=== PATIENT | female | born 1990 | race Caucasian/White ===

== ENCOUNTER 2020-10-10 11:57 | Emergency (ER) | payer OTHER, SELFPAY ==
[2020-10-10 11:59] VITALS: BP 134/86; PULSE 86; RESP 16; TEMP 36.3; O2SAT 99; BMI 17.2
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
== END 2020-10-10 13:32 | disposition home or self-care (01) ==
LOC: ED 12:37
PROVIDERS: Emergency Provider Emergency Medicine
DX: S09.90XA Unspecified injury of head, initial encounter (principal); Y04.2XXA Assault by strike against or bumped into by another person, initial encounter; Y93.89 Activity, other specified; Y92.10 Unspecified residential institution as the place of occurrence of the external cause; Y99.0 Civilian activity done for income or pay
CPT/HCPCS: 99282